=== PATIENT | female | born 1980 | race Hispanic/Latino ===

== ENCOUNTER 2021-07-16 04:07 | Inpatient (IN) | payer BC, OTHER ==
[~2021-07-16] VITALS: Ht 162.6 cm; Wt 69.9 kg
[2021-07-16 04:18] VITALS: BP 100/59
[2021-07-16] MEDS ORDERED: 0.9%NACL 1000ML 1,000 ML IV ONE (05:24)
[2021-07-16 05:38] LABS: BASOPHILS % (AUTO) 0.1 % (0.0-5.0); HEMATOCRIT 24.5 % (36-48); LYMPHOCYTES % (AUTO) 10.5 % (21.0-51.0); MEAN CORPUSCULAR HEMOGLOBIN 31.6 pg (27.0-33.0); MEAN CORPUSCULAR HGB CONC 33.1 g/dL (32.0-36.0); MEAN CORPUSCULAR VOLUME 95.7 fL (79-99); MONOCYTES % (AUTO) 3.2 % (3.0-13.0); NEUTROPHILS % (AUTO) 85.2 % (40.0-77.0); PLATELET COUNT (AUTO) 336 K/uL (130-400); RED BLOOD CELL COUNT(AUTO) 2.56 MIL/uL (4.00-5.50); RED CELL DISTRIBUTION WIDTH 12.9 % (11.0-15.5); WHITE BLOOD COUNT (AUTO) 21.1 K/uL (4.8-10.8)
[2021-07-16 05:40] VITALS: BP 115/72
[2021-07-16 05:48] LABS: CREATININE 0.9 mg/dL (0.5-1.5); POTASSIUM 3.9 mmol/L (3.5-5.1)
[2021-07-16 05:50] LABS: INR 1.06 (0.85-1.15); PROTHROMBIN TIME 11.5 SEC (9.6-11.6)
[2021-07-16 05:52] LABS: ALBUMIN 2.6 g/dL (3.5-5.0); BILIRUBIN,TOTAL 0.3 mg/dL (0.2-1.0); PARTIAL THROMBOPLASTIN TIME 25.1 SEC (26.3-35.5); TOTAL PROTEIN, SERUM 5.7 g/dL (6.0-8.3)
[2021-07-16 06:00] VITALS: BP 118/55
[2021-07-16 07:00] VITALS: BP 108/59
[2021-07-16] MEDS ORDERED: MISOPROSTOL 100 MCG TABLET PR SCH (08:00)
[2021-07-16 09:21] VITALS: BP 104/50
[2021-07-16] MEDS ORDERED: LACTATED RINGERS 1000ML 1,000 ML IV ONE ×2 (09:35→15:39)
[2021-07-16] MEDS ORDERED: AMMONIA 1 EA AMP IH ONE (14:49)
[2021-07-16 15:49] LABS: HEMATOCRIT 15.7 % (36-48)
[2021-07-16] MEDS ORDERED: MISOPROSTOL 200 MCG TABLET PR SCH (16:15)
[2021-07-16] MEDS ORDERED: SUCCINYLCHOLINE CHLORIDE 20 MG/ML 10 ML VIAL ONE (16:32)
[2021-07-16] MEDS ORDERED: LIDOCAINE PF 100MG/5ML (2%) SYRINGE 5ML ONE (16:32)
[2021-07-16] MEDS ORDERED: ROCURONIUM 10MG/1ML SYR 10 MG/ML ML ONE (16:33)
[2021-07-16] MEDS ORDERED: PROPOFOL 10 MG/ML 20ML VIAL IV ONE (16:33)
[2021-07-16] MEDS ORDERED: MIDAZOLAM HCL 1 MG/ML 2ML VIAL ONE (16:33)
[2021-07-16] MEDS ORDERED: ONDANSETRON 4MG INJ ONE (16:34)
[2021-07-16] MEDS ORDERED: CEFAZOLIN SODIUM 1 GM VIAL IVP ONE (16:50)
[2021-07-16] MEDS ORDERED: OXYTOCIN 10 USP UNITS/ML ONE (16:54)
[2021-07-16] MEDS ORDERED: FENTANYL CITRATE PF 50 MCG/1 ML 2ML VIAL ONE (17:00)
[2021-07-16] MEDS ORDERED: MEPERIDINE-PF 50 MG/ML SYG ONE (17:00)
[2021-07-16] MEDS ORDERED: CEFAZOLIN SODIUM 1 GM VIAL ONE (17:04)
[2021-07-16] MEDS ORDERED: EPHEDRINE SULFATE 50 MG/ML AMPULE ONE (17:39)
[2021-07-16] MEDS ORDERED: OXYTOCIN-LR 20 UNITS/1000 ML 1,000 ML IV ONE (19:32)
== END 2021-07-16 23:08 | disposition home or self-care (01) | DRG 770 ==
LOC: EDH 04:07 → LDH 04:08
PROVIDERS: ADMIT Internal Medicine; ATTEND Internal Medicine
PROC: 30233N1 Transfusion of Nonautologous Red Blood Cells into Peripheral Vein, Percutaneous Approach (ICD-10-PCS; 2021-07-16)
PROC: 10D17ZZ Extraction of Products of Conception, Retained, Via Natural or Artificial Opening (ICD-10-PCS; principal; 2021-07-16 13:00)
DX: O03.4 Incomplete spontaneous abortion without complication (principal); O03.31 Shock following incomplete spontaneous abortion
CPT/HCPCS: 36415; 76801; 80053; 81025; 84702; 85014; 85018; 85025; 85610; 85730; 86850; 86900; 86901; 86923; 99291; A4351; G0378; J0330; J0690; J2001; J2175; J2250; J2405; J2590; J2704; J3010; J3490; J7030; J7120; P9016